=== PATIENT | male | born 1945 | race Caucasian/White ===

== ENCOUNTER → 2017-06-30 09:41 | Outpatient (CLI) | payer MEDICARE, BC, SELFPAY ==
[2017-06-30 12:29] LABS: Anion Gap 10 (5-15); BUN 21 mg/dL (7-18); BUN/Creat Ratio 17.8 RATIO (10-20); Calcium,Total 9.4 mg/dL (8.5-10.1); Chloride 106 mmol/L (98-107); Creatinine, Serum 1.18 mg/dL (0.70-1.30); EST Glomerular Filtration Rate 64 mL/min (>60); Est Glom Filt Rate - Afr Amer 78 mL/min (>60); Glucose 102 mg/dL (74-106); Potassium 3.8 mmol/L (3.5-5.1); Sodium Level 140 mmol/L (136-145)
== END ==
PROVIDERS: Family Provider Family Medicine; PCP Family Medicine; Visit Provider Family Medicine
DX: I10 Essential (primary) hypertension (principal)
CPT/HCPCS: 36415; 80048

== ENCOUNTER → 2017-12-29 10:22 | Outpatient (CLI) | payer MEDICARE, BC, SELFPAY ==
[2017-12-29 12:42] LABS: Anion Gap 8 (5-15); BUN 15 mg/dL (7-18); BUN/Creat Ratio 13.5 RATIO (10-20); Calcium,Total 9.5 mg/dL (8.5-10.1); Chloride 105 mmol/L (98-107); Creatinine, Serum 1.11 mg/dL (0.70-1.30); EST Glomerular Filtration Rate 69 mL/min (>60); Est Glom Filt Rate - Afr Amer 83 mL/min (>60); Glucose 106 mg/dL (74-106); Potassium 4.3 mmol/L (3.5-5.1); Sodium Level 141 mmol/L (136-145)
== END ==
PROVIDERS: Family Provider Family Medicine; PCP Family Medicine; Visit Provider Family Medicine
DX: I10 Essential (primary) hypertension (principal)
CPT/HCPCS: 36415; 80048

== ENCOUNTER → 2018-07-03 13:25 | Outpatient (CLI) | payer MEDICARE, BC, SELFPAY ==
--- NOTE | 2018-07-03 13:31 | ECHOCS_ITS ---
Reason For Study: Murmur Procedure This was a 2D Doppler, Color Flow transthoracic echocardiogram. The study was technically difficult. Contrast injection was performed. Exam performed in department. Left Ventricle Normal LV size. Moderate concentric left ventricular hypertrophy. Left ventricular systolic function is hyperdynamic. The estimated ejection fraction is 75 %. Diastolic function is indeterminate. No regional wall motion abnormalities noted. Right Ventricle Normal RV size. Normal systolic function. Atria Normal left atrium. Normal right atrium. No doppler evidence for ASD. Mitral Valve There is no mitral annular calcification. Mild mitral valve prolapse. Mild (1+) mitral valve insufficiency. Tricuspid Valve Normal tricuspid valve. Trivial tricuspid valve insufficiency. Unable to estimate RV systolic pressure/pulmonary artery pressure due to technically difficult study. Aortic Valve Trisinus/trileaflet aortic valve. Mild focal aortic valve thickening. Trivial aortic valve insufficiency. Pulmonic Valve The pulmonic valve is not well visualized. Trivial pulmonic valve insufficiency. Great Vessels The aortic root is not well visualized. Pericardium/Pleural No pericardial effusion. Medication 22 gauge I.V. with prn adaptor inserted into right arm. Diluted definity 2.5ml given slow IV push to enhance endocardial definition. MMode/2D Measurements & Calculations LVIDd: 4.3 cm IVSd: 1.5 cm LAV(MOD-bp): 51.5 ml LVIDs: 2.9 cm LVPWd: 1.6 cm FS: 33.0 % LAV(MOD-bp) Indexed: 28.3 ml/m2 LAV(MOD-sp2): 54.4 ml LAV(MOD-sp4): 48.0 ml LA A4 area: 18.3 cm2 RA A4 area: 12.7 cm2 Time Measurements MV dec time: 0.19 sec Doppler Measurements & Calculations MV E max ben: 79.1 cm/sec Lat Peak E' Ben: 13.4 cm/sec Med Peak E' Ben: 4.9 cm/sec MV A max ben: 98.5 cm/sec E/E' lat: 5.9 E/E' med: 16.0 MV E/A: 0.80 MV V2 max: 93.8 cm/sec MV P1/2t max ben: 76.4 cm/sec Ao V2 max: 146.6 cm/sec MV max P.5 mmHg MV P1/2t: 84.1 msec Ao max P.6 mmHg MV V2 mean: 53.4 cm/sec MV mean P.3 mmHg MV dec slope: 265.9 cm/sec2 MV V2 VTI: 18.9 cm MVA(P1/2t): 2.6 cm2 LV V1 max: 107.8 cm/sec MR max ben: 616.0 cm/sec PA V2 max: 97.3 cm/sec LV V1 max P.7 mmHg MR max P.8 mmHg MR mean ben: 468.2 cm/sec MR mean P.5 mmHg MR VTI: 152.8 cm Interpretation Summary The study was technically difficult. Contrast injection was performed. Left ventricular systolic function is hyperdynamic. The estimated ejection fraction is 75 %. Moderate concentric left ventricular hypertrophy. Mild mitral valve prolapse. Mild (1+) mitral valve insufficiency. Trivial tricuspid valve insufficiency. Mild focal aortic valve thickening. Trivial aortic valve insufficiency. Trivial pulmonic valve insufficiency. Diastolic function is indeterminate. Ordering Physician: Lashanda Domínguez Referring Physician: Lashanda Domínguez Performed By: Hunter Turpin RCS
== END ==
PROVIDERS: Family Provider Family Medicine; PCP Family Medicine; Referring Provider Family Medicine; Visit Provider Family Medicine
DX: R01.1 Cardiac murmur, unspecified (principal)
CPT/HCPCS: 93306; Q9957; A4216; C8929

== ENCOUNTER → 2019-01-25 14:14 | Outpatient (CLI) | payer MEDICARE, BC, SELFPAY ==
[2019-01-25 15:56] LABS: Anion Gap 11 (5-15); BUN 20 mg/dL (7-18); BUN/Creat Ratio 16.7 RATIO (10-20); Calcium,Total 9.5 mg/dL (8.5-10.1); Chloride 102 mmol/L (98-107); EST Glomerular Filtration Rate 63 mL/min (>60); Est Glom Filt Rate - Afr Amer 76 mL/min (>60); Glucose 95 mg/dL (74-106); Potassium 3.8 mmol/L (3.5-5.1); Sodium Level 140 mmol/L (136-145)
== END ==
PROVIDERS: Family Provider Family Medicine; PCP Family Medicine; Visit Provider Family Medicine
DX: I10 Essential (primary) hypertension (principal)
CPT/HCPCS: 36415; 80048

== ENCOUNTER → 2020-07-12 15:13 | Outpatient (CLI) | payer MEDICARE, BC, SELFPAY ==
[2020-07-12 18:08] LABS: Microalbumin:Creatinine Ratio 16.3 mg/g CRE (<30 mg/g CRE)
[2020-07-12 18:16] LABS: Anion Gap 7 (5-15); BUN 17 mg/dL (7-18); BUN/Creat Ratio 18.1 RATIO (10-20); Calcium,Total 9.4 mg/dL (8.5-10.1); Chloride 105 mmol/L (98-107); Cholesterol 204 mg/dL (200); Creatinine, Serum 0.94 mg/dL (0.70-1.30); EST Glomerular Filtration Rate 83 mL/min (>60); Est Glom Filt Rate - Afr Amer 100 mL/min (>60); Glucose 94 mg/dL (74-106); High Density Lipoprotein 55 mg/dL; PSA,Total- Diagnostic 1.76 ng/mL (0.0-4.0); Potassium 3.5 mmol/L (3.5-5.1); Sodium Level 138 mmol/L (136-145); Triglycerides 179 mg/dL; Very Low Density Lipoprotein 36 mg/dL (5-40)
== END ==
PROVIDERS: PCP Family Medicine; Referring Provider Family Medicine; Visit Provider Family Medicine
DX: C61 Malignant neoplasm of prostate (principal); I10 Essential (primary) hypertension
CPT/HCPCS: 36415; 80048; 80061; 82043; 82570; 84153

== ENCOUNTER → 2021-07-16 | Outpatient (CLI) | payer MEDICARE, BC, SELFPAY ==
[2021-07-16 16:02] LABS: Anion Gap 9 (5-15); BUN 18 mg/dL (7-18); BUN/Creat Ratio 14.6 RATIO (10-20); Chloride 105 mmol/L (98-107); Cholesterol 181 mg/dL (200); Creatinine, Serum 1.23 mg/dL (0.70-1.30); EST Glomerular Filtration Rate 61 mL/min (>60); Est Glom Filt Rate - Afr Amer 73 mL/min (>60); Glucose 110 mg/dL (74-106); High Density Lipoprotein 48 mg/dL; Sodium Level 139 mmol/L (136-145); Triglycerides 154 mg/dL; Very Low Density Lipoprotein 31 mg/dL (5-40)
== END | disposition home or self-care (01) ==
LOC: MFPLAB 10:24
PROVIDERS: PCP Family Medicine; Visit Provider Family Medicine
DX: I10 Essential (primary) hypertension (principal)
CPT/HCPCS: 36415; 80048; 80061

== ENCOUNTER → 2022-07-17 | Outpatient (CLI) | payer MEDICARE, BC, SELFPAY ==
[2022-07-17 13:03] LABS: Anion Gap 9 (5-15); BUN 22 mg/dL (7-18); Calcium,Total 9.7 mg/dL (8.5-10.1); Chloride 104 mmol/L (98-107); Cholesterol 193 mg/dL (200); Creatinine, Serum 1.22 mg/dL (0.70-1.30); EST Glomerular Filtration Rate 61 mL/min (>60); Est Glom Filt Rate - Afr Amer 74 mL/min (>60); Glucose 112 mg/dL (74-106); High Density Lipoprotein 50 mg/dL; Potassium 3.8 mmol/L (3.5-5.1); Sodium Level 140 mmol/L (136-145); Triglycerides 192 mg/dL; Very Low Density Lipoprotein 38 mg/dL (5-40)
== END | disposition home or self-care (01) ==
LOC: MFPLAB 09:44
PROVIDERS: PCP Family Medicine; Visit Provider Family Medicine
DX: I10 Essential (primary) hypertension (principal)
CPT/HCPCS: 36415; 80048; 80061

== ENCOUNTER → 2023-07-21 | Outpatient (CLI) | payer MEDICARE, BC, SELFPAY ==
[2023-07-21 12:37] LABS: Protein, Urine (Random) 15.7 mg/dL (<11.9); Protein:Creat Ratio 74 mg/g CRE (0-200)
[2023-07-21 13:00] LABS: Anion Gap 7 (5-15); BUN 18 mg/dL (7-18); BUN/Creat Ratio 14.6 RATIO (10-20); Calcium,Total 10.1 mg/dL (8.5-10.1); Chloride 103 mmol/L (98-107); Creatinine, Serum 1.23 mg/dL (0.70-1.30); EST Glomerular Filtration Rate 60 mL/min (>60); Est Glom Filt Rate - Afr Amer 73 mL/min (>60); Glucose 120 mg/dL (74-106); Potassium 3.8 mmol/L (3.5-5.1); Sodium Level 136 mmol/L (136-145)
== END | disposition home or self-care (01) ==
LOC: MFPLAB 10:28
PROVIDERS: PCP Family Medicine; Visit Provider Family Medicine
DX: I10 Essential (primary) hypertension (principal)
CPT/HCPCS: 36415; 80048; 82570; 84156

== ENCOUNTER → 2024-07-26 | Outpatient (CLI) | payer MEDICARE, BC, SELFPAY ==
[2024-07-26 13:37] LABS: Microalbumin,Random Urine < 12.0 mg/L (NO RANGE EST.); Protein, Urine (Random) 16.9 mg/dL (0.0-12.0); Protein:Creat Ratio 104 mg/g CRE (0-200)
[2024-07-26 14:08] LABS: ALB/GLOB Ratio 1.4 RATIO (0.9-2.4); AST(SGOT) 20 U/L (<=37); Alanine Aminotransfer ALT/SGPT 15 U/L (<=46); Albumin, Serum 4.4 g/dL (3.4-4.8); Alkaline Phosphatase 62 U/L (40-129); Anion Gap 14 (5-15); BUN 19 mg/dL (4-19); BUN/Creat Ratio 17.1 RATIO (10-20); Calcium,Total 10.1 mg/dL (7.6-11.0); Carbon Dioxide 22.8 mmol/L (21.0-32.0); Chloride 102 mmol/L (98-108); Cholesterol 180 mg/dL (<=200); Creatinine, Serum 1.12 mg/dL (0.70-1.20); EST Glomerular Filtration Rate 66 (>60); Globulin 3.1 g/dL (2.2-4.2); Glucose 115 mg/dL (70-99); High Density Lipoprotein 50 mg/dL; Low Density Lipoprotein Calc. 85 mg/dL; Potassium 4.1 mmol/L (3.3-5.1); Protein, Total 7.4 g/dL (5.9-8.4); Sodium Level 139 mmol/L (133-145); Total Bilirubin 0.97 mg/dL (0.00-1.30); Triglycerides 226 mg/dL; Very Low Density Lipoprotein 45 mg/dL (5-40); cholesterol:hdl ratio screen 3.58
== END | disposition home or self-care (01) ==
LOC: MFPLAB 09:37
PROVIDERS: PCP Nurse Practitioner Family; Referring Provider Nurse Practitioner Family; Visit Provider Nurse Practitioner Family
DX: I10 Essential (primary) hypertension (principal)
CPT/HCPCS: 36415; 80053; 80061; 82043; 82570; 84156

== ENCOUNTER → 2024-09-14 | Outpatient (CLI) | payer MEDICARE, BC, SELFPAY ==
--- NOTE | 2024-09-14 12:29 | ECHOD_ITS ---
Reason For Study Reason For Study: LVH Procedure This was a 2D Doppler, Color Flow transthoracic echocardiogram. Exam performed in department. Left Ventricle Normal LV size. The left ventricular ejection fraction is 60 %. Stage 1 diastolic dysfunction. No regional wall motion abnormalities noted. Right Ventricle Normal RV size. Normal systolic function. Atria Normal left atrium. Normal right atrium. Mitral Valve Bileaflet mitral valve prolapse. Moderate (2+) eccentric mitral valve insufficiency. Moderate (2+) anteriorly directed mitral valve insufficiency. Tricuspid Valve Normal tricuspid valve. Mild (1+) tricuspid valve insufficiency. Pulmonary artery systolic pressure is 30 mmHg. Aortic Valve Trisinus/trileaflet aortic valve. Mild (1+) eccentric aortic valve insufficiency. Pulmonic Valve Normal pulmonic valve. Great Vessels Normal aortic root. The pulmonary artery is normal size. Inferior vena cava collapse with respiration. Pericardium/Pleural No pericardial effusion. MMode/2D Measurements & Calculations LVIDd: 5.7 cm IVSd: 1.2 cm LVOT diam: 2.4 cm LVIDs: 2.6 cm LVPWd: 0.94 cm LVOT area: 4.3 cm2 FS: 54.7 % asc Aorta Diam: 3.7 cm LAV(MOD-bp): 42.6 ml LVAd ap4: 29.5 cm2 LAV(MOD-bp) Indexed: 23.3 ml/m2 LVLd ap4: 8.0 cm LAV(MOD-sp2): 63.5 ml EDV(MOD-sp4): 88.4 ml LAV(MOD-sp4): 21.7 ml EDV(sp4-el): 92.4 ml LVAs ap4: 14.3 cm2 LVLs ap4: 6.5 cm ESV(MOD-sp4): 26.9 ml ESV(sp4-el): 26.8 ml EF(MOD-sp4): 69.5 % EF(sp4-el): 71.0 % SV(MOD-sp4): 61.4 ml SV(sp4-el): 65.6 ml LA A4 area: 10.1 cm2 SI(MOD-sp4): 33.6 ml/m2 RA A4 area: 8.2 cm2 Time Measurements MV dec time: 0.28 sec Doppler Measurements & Calculations MV E max ben: 57.2 cm/sec Lat Peak E' Ben: 11.8 cm/sec Med Peak E' Ben: 9.9 cm/sec MV A max ben: 86.4 cm/sec E/E' lat: 4.8 E/E' med: 5.8 MV E/A: 0.66 Ao V2 max: 147.6 cm/sec AI max ben: 367.9 cm/sec MV dec slope: 202.6 cm/sec2 Ao max P.7 mmHg AI max P.1 mmHg Ao V2 mean: 104.4 cm/sec Ao mean P.8 mmHg AI dec slope: 352.1 cm/sec2 Ao V2 VTI: 18.8 cm AI P1/2t: 306.0 msec ROSETTA(V,D): 2.6 cm2 LV V1 max: 87.9 cm/sec PA V2 max: 82.5 cm/sec TR max ben: 253.3 cm/sec LV V1 max P.1 mmHg TR max P.7 mmHg ECHO/Echo Complete Interpretation Summary Normal LV size. The left ventricular ejection fraction is 60 %. No regional wall motion abnormalities noted. Bileaflet mitral valve prolapse. Moderate (2+) anteriorly directed mitral valve insufficiency. Stage 1 diastolic dysfunction. Ordering Physician: Sophia Munguia Referring Physician: Sophia Munguia Performed By: Livia Espino RVT, RDCS and Student
== END | disposition home or self-care (01) ==
LOC: CVS 12:26
PROVIDERS: PCP Nurse Practitioner Family; Referring Provider Nurse Practitioner Family; Visit Provider Nurse Practitioner Family
DX: I51.7 Cardiomegaly (principal)
CPT/HCPCS: 93306